=== PATIENT | male | born 1970 | race Two or more races ===

== ENCOUNTER 2022-03-05 14:48 | Emergency (ER) | payer OTHER ==
[~2022-03-05] VITALS: Ht 182.9 cm; Wt 81.6 kg
[2022-03-05] MEDS ORDERED: AVAPRO300 MG (15:03)
[2022-03-05] MEDS ORDERED: ADALAT CC30 MG PO (15:03)
== END 2022-03-05 15:26 | disposition home or self-care (01) ==
LOC: ER 14:48
DX: S81.852A Open bite, left lower leg, initial encounter (principal); W54.0XXA Bitten by dog, initial encounter; Y93.89 Activity, other specified; Y92.830 Public park as the place of occurrence of the external cause; Y99.9 Unspecified external cause status; Z88.6 Allergy status to analgesic agent; Z88.0 Allergy status to penicillin

== ENCOUNTER 2022-06-03 15:47 | Outpatient (CLI) | payer OTHER ==
[~2022-06-03 15:47] MED LIST: ADALAT CC30 MG PO; AVAPRO300 MG
== END 2022-06-03 15:49 | disposition home or self-care (01) ==
LOC: PPH VACUNA 15:47
PROVIDERS: ATTEND Emergency Medicine Pediatric Emergency Medicine
DX: Z23 Encounter for immunization (principal)

== ENCOUNTER 2022-08-08 13:12 | Outpatient (CLI) | payer OTHER | END 2022-08-08 13:22 | disposition home or self-care (01) | LOC: PPH VACUNA 13:12 | PROVIDERS: ATTEND Emergency Medicine Pediatric Emergency Medicine | DX: Z23 Encounter for immunization (principal) ==

== ENCOUNTER 2023-08-08 07:10 | Outpatient (CLI) | payer OTHER | END 2023-08-08 07:25 | disposition home or self-care (01) | LOC: TOM 07:10 | PROVIDERS: ATTEND Otolaryngology | DX: C02.3 Malignant neoplasm of anterior two-thirds of tongue, part unspecified (principal) ==

== ENCOUNTER 2024-06-08 11:12 | Emergency (ER) | payer OTHER ==
[~2024-06-08] VITALS: Ht 182.9 cm; Wt 84.4 kg
[2024-06-08 12:35] LABS: HEMATOCRIT 54.3 % (39.0-48.0); HEMOGLOBIN 18.4 g/dL (13-16.00); MEAN CORPUSCULAR HEMOGLOBIN 33.2 pg (27.00-32.0); MEAN CORPUSCULAR HGB CONC 33.9 g/dl (32.0-36.0); PLATELET COUNT 174 K/uL (150-450); RED BLOOD COUNT 5.54 M/uL (4.00-6.00); RED CELL DISTRIBUTION WIDTH 12.7 % (11.5-14.5)
[2024-06-08 12:55] LABS: PH,URINE 6.5 (5.0-8.0); URINE APPEARANCE Clear; URINE BILIRRUBIN Negative (NEGATIVE); URINE BLOOD Negative; URINE COLOR Yellow; URINE GLUCOSE Negative (NEGATIVE); URINE KETONE Trace (NEGATIVE); URINE LEUKOCYTE Negative; URINE NITRATE Negative; URINE PROTEIN Negative (NEGATIVE); URINE UROBILINOGEN 0.2 E.U./dl
[2024-06-08 12:59] LABS: URINE BACTERIA 7.5 uL (0.0-1933); URINE WBC 2.1 uL (0.0-23.2)
[2024-06-08 13:01] LABS: ALBUMIN 4.8 gm/dL (3.4-5.0); BILIRUBIN TOTAL 1.74 mg/dL (0.3-1.2); BILIRUBIN,CONJUGATED 0.34 mg/dL (0.0-0.2); BILIRUBIN,UNCONJUGATED 1.4 mg/dL (0.0-0.6); CREATININE SERUM 1.69 mg/dL (0.70-1.30); GFR 42.66; GLOBULINA 3.2 G/DL (2.4-3.5); POTASSIUM 4.41 mEq/L (3.5-5.1)
[2024-06-08 13:08] LABS: URINE CAST 0.15 uL (0.0-1.40); URINE EPITHELIAL CELLS 1.2 uL (0.0-38.8); URINE RBC 1.5 uL (0.0-20.8)
[2024-06-08] MEDS ORDERED: 0.9 % SODIUM CHLORIDE 1,000 ML IV SCH (13:45)
[2024-06-08 16:43] LABS: HEMATOCRIT 50.9 % (39.0-48.0); HEMOGLOBIN 17.3 g/dL (13-16.00); MEAN CELL VOLUME 96.8 fL (80.0-100.00); MEAN CORPUSCULAR HEMOGLOBIN 32.8 pg (27.00-32.0); MEAN CORPUSCULAR HGB CONC 33.9 g/dl (32.0-36.0); PLATELET COUNT 151 K/uL (150-450); RED BLOOD COUNT 5.26 M/uL (4.00-6.00)
[2024-06-08 17:17] LABS: ALBUMIN 4.1 gm/dL (3.4-5.0); BILIRUBIN TOTAL 1.38 mg/dL (0.3-1.2); CREATININE SERUM 1.3 mg/dL (0.70-1.30); GFR 57.75; POTASSIUM 3.9 mEq/L (3.5-5.1); TOTAL PROTEIN 7.1 gm/dL (6.4-8.2)
== END 2024-06-08 18:18 | disposition home or self-care (01) ==
LOC: ER 11:12
PROVIDERS: Emergency Medicine
DX: I10 Essential (primary) hypertension (principal); R55 Syncope and collapse; J45.909 Unspecified asthma, uncomplicated; Z85.810 Personal history of malignant neoplasm of tongue; E86.0 Dehydration